=== PATIENT | male | born 1950 | race Caucasian/White ===

== ENCOUNTER 2018-04-27 23:04 | Emergency (ER) | payer OTHER ==
--- NOTE | 2018-04-27 23:44 | EDPHY ---
H & P Stated Complaint: fast HR according to watch monitor Time Seen by Provider: 04/27/18 23:20 HPI/ROS: Chief Complaint: Rapid heart rate HPI: 68-year-old male with a history of hyperlipidemia is presenting with concerns about his heart rate. Patient states that twice today his apple watch indicated that his heart rate was elevated. For a period of about 20 min around 5:00 p.m.. He was getting readings from 110s to 120s which self resolved. Again at 10:00 tonight it was in the 110s to 120s for about 20 min and resolved. He was completely asymptomatic. No chest pain. No palpitations. Not lightheaded. No fevers or chills. These occurred while he was at rest. No nausea or vomiting. Otherwise has been in his usual state health. His been without complaints in feeling well. ROS: 10 systems were reviewed and were negative except those elements noted in the HPI. PMH: Hyperlipidemia Social History: No smoking, no alcohol, no recreational drug use Family History: non-contributory Physical Exam: Gen: Awake, Alert, No Distress HEENT: Nose: no rhinorrhea Eyes: PERRLA, EOMI Mouth: Moist mucosa Neck: Supple, no JVD Chest: nontender, lungs clear to auscultation Heart: S1, S2 normal, no murmur Abd: Soft, non-tender, no guarding Back: no CVA tenderness, no midline tenderness Ext: no edema, non-tender Skin: no rash Neuro: CN II-XII intact, Sensation grossly intact, Strength 5/5 in bilateral upper and lower extremities - Personal History Current Tetanus Diphtheria and Acellular Pertussis (TDAP): Yes - Medical/Surgical History Hx Asthma: No Hx Chronic Respiratory Disease: No Hx Diabetes: No Hx Cardiac Disease: Yes Hx Renal Disease: No Hx Cirrhosis: No Hx Alcoholism: No Hx HIV/AIDS: No Hx Splenectomy or Spleen Trauma: No Other PMH: ANGIOGRAM 1.5 YR AGO W/SOME BLOCKAGE, HTN, HYPERLIPID. - Social History Smoking Status: Never smoked Constitutional: Initial Vital Signs Temperature (C) 36.3 C 04/27/18 23:10 Heart Rate 75 04/27/18 23:10 Respiratory Rate 20 04/27/18 23:10 Blood Pressure 146/81 H 04/27/18 23:10 O2 Sat (%) 96 04/27/18 23:10 O2 Delivery Mode Room Air Allergies/Adverse Reactions: No Known Allergies Allergy (Verified 04/27/18 23:09) Home Medications: Medication Instructions Recorded Lisinopril 5 mg PO DAILY 04/24/12 Rosuvastatin Calcium [Crestor 40mg 40 mg PO DAILY 04/24/12 (RX)] Aspirin [Aspirin 81mg (OTC)] 81 mg PO DAILY 02/25/13 Fish Oil 2 cap PO DAILY 02/25/13 Medical Decision Making - Diagnostics EKG Interpretation: ECG time 05/26/2033. Sinus rhythm with a rate of 71, there is a right bundle branch block which is unchanged from February 2013. Normal axis, normal intervals, no acute ST or T-wave changes. ED Course/Re-evaluation: Patient has normal vital signs. He has a regular heart rate on the monitor. ECG shows an old right bundle branch block which is unchanged from prior. Patient is completely asymptomatic. We discussed possibility of causes including sinus tachycardia, atrial fibrillation or atrial tachycardia, other arrhythmia, or PVCs. Do not have a tracing for these events to know what his heart was at this time but he certainly is well appearing now. He was completely asymptomatic with these. He has been reassured. ECG is unchanged from prior. He has actually had a clean catheterization by Dr. Lawson in the last 2 years. He has been reassured and instructed to follow up with primary care physician for any concerns. If these continue he may need to wear a Holter monitor as an outpatient to capture the rhythm. Departure - Departure Disposition: Home, Routine, Self-Care Clinical Impression: Tachycardia Condition: Good Instructions: Tachycardia (ED) Additional Instructions: Follow up with primary care physician in 2-3 days for further evaluation. If you continue to have episodes of a rapid heart rate I would discuss with primary care physician wearing a heart monitor so that you can capture the heart rhythm during these episodes. Return emergency department for chest pain, palpitations, lightheadedness, fainting, shortness of breath, or any other concerns. Referrals: Tess Lima MD [Primary Care Provider] - As per Instructions
[2018-04-28 00:19] VITALS: BP 128/80
--- NOTE | 2018-04-29 03:17 | CPEKG ---
Test Reason : OPEN Blood Pressure : / mmHG Vent. Rate : 071 BPM Atrial Rate : 068 BPM P-R Int : 168 ms QRS Dur : 123 ms QT Int : 390 ms P-R-T Axes : 054 046 019 degrees QTc Int : 424 ms Sinus rhythm Right bundle branch block Confirmed by Rahat Wild ([id number] on 04/29/2018 3:16:42 AM Referred By: Rahat Wild Confirmed By:Rahat Wild
== END 2018-04-28 00:19 | disposition home or self-care (01) ==
DX: R00.0 Tachycardia, unspecified (principal)